=== PATIENT | female | born 1990 | race Caucasian/White ===

== ENCOUNTER 2020-10-30 18:36 | Emergency (ER) | payer MEDICAID, SELFPAY ==
[~2020-10-30] VITALS: Ht 162.6 cm; Wt 56.7 kg
[2020-10-30 18:40] VITALS: BP_SYST 111
== END 2020-10-30 20:37 | disposition left against medical advice (07) ==
LOC: SED 18:36
DX: O9A.311 Physical abuse complicating pregnancy, first trimester (principal); F11.10 Opioid abuse, uncomplicated; R50.9 Fever, unspecified; Z3A.08 8 weeks gestation of pregnancy
CPT/HCPCS: 81025; 99283